=== PATIENT | female | born 1945 | race Caucasian/White ===

== ENCOUNTER 2016-05-19 14:28 | Emergency (ER) | payer MEDICARE, OTHER ==
--- NOTE | 2016-05-19 15:30 | ERNOTE ---
Abdominal HPI - Narrative Date of Service: 05/19/16 - General Chief Complaint: Abdominal Pain Source: patient Exam Limitations: no limitations - Immun/Allergies/Home Medications Immunizatons: IMMUNIZATION HX Immunizations Up to Date No History of Influenza Vaccine Yes Hx Pneumococcal Vaccination Yes Allergies/Adverse Reactions: Allergies ergotamine [Ergotamine] Adverse Reaction (Intermediate, Verified 04/12/16 15:24) hallucinations sumatriptan [From Imitrex] Adverse Reaction (Intermediate, Verified 04/30/16 15: 28) worsening Headache sumatriptan succinate [From Imitrex] Adverse Reaction (Intermediate, Verified 15:28) worsening Headache Home Medications: HOME MEDICATIONS ALPRAZolam [Xanax] 0.5 mg PO TID PRN 01/15/16 [Last Taken Unknown] Divalproex Sodium [Depakote ER] 250 mg PO BID 01/15/16 [Last Taken Unknown] Venlafaxine HCl [Effexor Xr] 150 mg PO DAILY 01/15/16 [Last Taken Unknown] Melatonin/Pyridoxine [Melatonin 3 mg Tablet] 1 each PO HS 04/30/16 [Last Taken Unknown] Mirtazapine [Mirtazapine (Remeron)] 7.5 mg PO HS 04/30/16 [Last Taken Unknown] Multivitamins [Multivitamin Celsa] 1 cap PO DAILY 04/30/16 [Last Taken Unknown] - Pain Score Pain Score #1 Pain Score: 3 Abdominal Pain Onset Location: RLQ, LLQ - History of Present Illness Narrative: 71yo, F, presents to ED via EMS for abd pain. States she has hx of perforated diverticuli with abscess to abd, which was improving per her providers at [facility]. She is currently NPO, receiving TPN through her RUE picc line for 14 hours on and 10 hours off. She reports over the past 4 days developed increased lower abd pain, fatigue, N/V (2 eipsodes today), chills and fever. Reports onset of fever on 06/17/16, tmax 100.9. States she spoke wither GI doctor. Dr. Espinoza' s office and was advised to report to [facility] ER for further evaluation. States she called the [facility] ambulance, but they would only bring her to [facility] and she would need [facility] to transfer to [facility]. She is scheduled to have bowel resection on 05/24/[address] Thorpe. Activities at Onset: none Associated Symptoms: Present: nausea, vomiting Review of Systems - Review of Systems Constitutional: Present: fever, chills, fatigue Respiratory: Absent: shortness of breath, cough Cardiology: Absent: chest pain Gastrointestinal/Abdominal: Present: nausea, vomiting, diarrhea - chronic, abdominal pain - lower abd. Absent: constipation Genitourinary: Absent: frequency, pain, dysuria, hematuria Skin: Present: other - PICC to RUE, inact, no erythema, non-tender, no dc at site. Absent: rash - Patient's Past Medical History Patient History - Medical: Anxiety, Arthritis, Chronic Pain, Depression, Headache, Osteoporosis, Other Patient History - Cardiac/Respiratory: No pertinent hx Patient History - Cancer: No Hx of Cancer Patient History - Surgical Procedures: Appendectomy, Back Surgery, Colonoscopy, Hysterectomy, Other LMP (females 10-50): Menopausal - Family History Brother Family History - Medical: Other Father Family History - Medical: Other Mother Family History - Medical: Diabetes Type 2 Family History - Cardiac/Respiratory: Myocardial Infarction - Social History Living Situations: home Alcohol Use: none Drug Use: none Physical Exam - Physical Exam General Appearance: Present: wd/wn, alert, no apparent distress Respiratory: Present: normal breath sounds, no accessory muscle use, lungs clear. Absent: crackles, rhonchi, wheezing Cardiovascular/Chest: Present: regular rate, rhythm, no murmur Gastrointestinal/Abdominal: Present: normal bowel sounds, nondistended, soft, tenderness - RLQ and suprapubic region, other ED Progress - Date and Time Seen: Date and Time: 05/19/16 [address] Espinoza's office re: situation. States she had been advised by their office to seek care at [facility] ER yesterday, but had told the office staff that she would likely seek care locally. Today she and her home health nurse spoke with Dr. Espinoza's office and they advised to seek further evaluation in ER. There office denies any previous arrangements for direct transfer or direct admit. 1545: Transferred to Charla, nurse at Dr. Thorpe's office, they were aware of her situation and that she was advised to be evaluated, state no direct transfer or direct admission had been arranged. They recommended initiating evaluation at [facility]. Pt was initially refusing blood or CT, stated she was just supposed to transfer. After discussion with [facility], pt agrees to CT and lab. 05/19/16 17:50 Spoke with pt regarding labs and POC. Son is now at bedside, he states if non- emergent transfer needed he would be able to transfer her to [facility]. Pt awaiting CT scan, did discuss risks and benefits of not performing CT scan and risks if son transfers pt without scan performed. Pt and son agreed to go forward with CT scan. 05/19/16 19:35 Pt still wishes to be evaluated at [facility]. Discussed case with Dr. Alcazar, ERP here, states as this is a non-emergent transfer, she should be taken by private vehicle to [facility]. - Results and Orders Patient's Lab Results:: I have reviewed the patient's lab results. - Vital Signs Patient's Vital Signs:: I have reviewed the patient's vital signs. Vital Signs: Vital Signs 05/19/16 14:28 Temperature 37.2 C Pulse Rate 95 Respiratory 20 Rate Blood Pressure 137/66 O2 Sat by Pulse 93 Oximetry - CT/Ultrasound CT/Ultrasound Narrative: [facility] PATIENT RADIOLOGY STUDY REPORT Patient Patient Name:GUMARO ALANIZ Date: 1945 Sex: F Order Number: [id number] Unique Exam ID: [id number] Exam Requested: ABDPELW - CT Abdomen/Pelvis W/ Contrast Date Scheduled: Study Priority: Requesting Service: Requesting Physician: Brie Falcon Reason for Exam: Radiological Report : Exam Date: 05/19/2016 18:19 Ordering Physician: Brie Falcon Indication: Lower abdominal pain, fever, chills, temperature history of ruptured diverticulitis Comparison: January 12, 2016 Technique: CT Abdomen/Pelvis W/ Contrast Findings: Lung bases are clear. The liver, spleen, pancreas and adrenals are unremarkable. Gallbladder is contracted. Reidentified gallstone within a noninflamed gallbladder. There are bilateral renal cysts. No nephrolithiasis or obstructive uropathy. No evidence for intestinal obstruction. The appendix appears surgically absent. There is extensive air-fluid levels within the colon. Within the sigmoid and rectum there is diffuse colonic wall thickening B identified. There is pericolonic inflammatory change. Within the rectum there is a fluid flexion. This appears to be intraluminal. Small amount of free fluid seen within the perirectal region. No definitive evidence for abscess seen. No free air. Remainder of the exam is unchanged from prior study. IMPRESSION: 1. Ongoing colonic wall thickening and pericolonic inflammatory change from the sigmoid colon to the rectum. No identifiable abscess. Colitis versus diverticulitis reidentified. Free fluid remains within the pelvis however this has improved. No free air. Please see above for remainder of findings. Electronically signed by Keo Villalpando M.D.. Approved by: Approval Date: 05-19-2016 Approval Time: 06:55 PM THIS REPORT WAS RECEIVED FROM THE [employer] SYSTEM - Progress/Reassessment Chief Complaint: Abdominal Pain Departure - Departure Clinical Impression: Colitis, Fever Abdominal pain Qualifiers: Abdominal location: lower abdomen, unspecified Qualified Code(s): R10.30 - Lower abdominal pain, unspecified Disposition: Home self-care Condition: Stable Instructions: Abdominal Pain, Adult, [id number], Colitis Additional Instructions: Pt riding by personal vehicle to [facility] Referrals: Zoie Diehl MD [Primary Care Provider] -
[2016-05-19 16:34] LABS: Hematocrit 37.2 % (37.0-47.0); Hemoglobin 12.3 gm/dL (12.5-16.0); Mean Cell Volume 89.4 fl (78-100); Mean Corpuscular Hemoglobin 29.6 pg (27-31); Mean Corpuscular Hgb Conc 33.1 g/dl (32-36); Mean Platelet Volume 12.6 fl (6.0-9.5); Platelet Count 167 K/mm3 (150-450); Red Blood Count 4.16 M/mm3 (4.2-5.4); Red Cell Distribution Width 14.4 % (11.5-14.0); White Blood Count 15.6 K/mm3 (4.0-10.5)
[2016-05-19 16:37] LABS: Total Cells Counted 100
[2016-05-19 16:49] LABS: Albumin * 3.2 gm/dl (3.4-5.0); Anion Gap 11.3 mmol/L (6.8-13.8); BUN/Creatinine Ratio 20.5 (9.0-21.6); Bilirubin, Total 0.4 mg/dL (0.0-1.1); Ca. Corrected For Albumin 9.5 mg/dL (8.4-10.2); Calcium * 9.2 mg/dL (7.9-10.9); Carbon Dioxide 28.6 mmol/L (24-32.6); Potassium 3.9 mmol/L (3.4-4.6); Total Protein 7.4 gm/dL (6.2-8.2)
[2016-05-19 16:51] LABS: Atypical (Reactive) Lymph 1 % (0-2); Band 2 % (0-2.0); Eosinophil 1 % (0-3); Immature Granulocyte 1 (0-1); Lymphocyte 5 % (20-51); Monocyte 5 % (0-9); Neutrophil 85 % (42-75); Neutrophil # 13.3 K/mm3 (1.3-6.0)
[2016-05-19 16:54] LABS: Hypochromia 1+; Platelet Estimate Normal (NORMAL)
[2016-05-19 17:33] LABS: Urine Bilirubin Negative (NEGATIVE); Urine Blood 25 /ul (NEGATIVE); Urine Ketone Negative (NEGATIVE); Urine Nitrite Negative (NEGATIVE); Urine Protein 15 mg/dL (NEGATIVE); Urine Specific Gravity 1.025 SP.GR. (1.005-1.010); Urine Urobilinogen Normal (NORMAL)
[2016-05-19] MEDS ORDERED: PIPERACILLIN SODIUM/TAZOBACTAM 3.375 GM in DEXTROSE 5 % IN WATER 100 ML IV ONE ×2 (17:41)
[2016-05-19] MEDS ORDERED: metroNIDAZOLE/SODIUM CHLORIDE 500 MG/100 ML BAG IV SCH (17:45)
[2016-05-19 17:48] LABS: Urine Appearance Clear; Urine Color Yellow; Urine WBC 0-5 /hpf (0-5)
[2016-05-19 17:49] LABS: Urine Bacteria TRACE; Urine Mucus Many - 3+; Urine RBC 0-5 /hpf (0-5)
[2016-05-19] MEDS ORDERED: metroNIDAZOLE 250 MG TABLET PO ONE (19:27)
[2016-05-19] MEDS ORDERED: metroNIDAZOLE 250 MG TABLET ONE (19:31)
[2016-05-19 19:42] VITALS: BP 119/59
[2016-05-19] MEDS ORDERED: HYDROcodone/ACETAMINOPHEN 1 EACH TABLET PO ONE (19:46)
[2016-05-19] MEDS ORDERED: HYDROcodone/ACETAMINOPHEN 1 EACH TABLET ONE (19:50)
== END 2016-05-19 20:09 | disposition home or self-care (01) ==
LOC: ER 14:28
DX: K52.9 Noninfective gastroenteritis and colitis, unspecified (principal); R10.30 Lower abdominal pain, unspecified; R50.9 Fever, unspecified

== ENCOUNTER 2016-06-17 14:50 | Emergency (ER) | payer MEDICARE, OTHER ==
--- NOTE | 2016-06-17 15:17 | ERNOTE ---
Medical Problem HPI - Narrative Date of Service: 06/17/16 - General Chief Complaint: General Assessment Time Seen by Provider: 06/17/16 15:16 Source: patient, family, [facility] records - Immun/Allergies/Home Medications Immunizations: IMMUNIZATION HX Immunizations Up to Date No History of Influenza Vaccine Yes Hx Pneumococcal Vaccination Yes Allergies/Adverse Reactions: Allergies ergotamine [Ergotamine] Adverse Reaction (Intermediate, Verified 04/12/16 15:24) hallucinations sumatriptan [From Imitrex] Adverse Reaction (Intermediate, Verified 04/30/16 15: 28) worsening Headache sumatriptan succinate [From Imitrex] Adverse Reaction (Intermediate, Verified 15:28) worsening Headache Home Medications: HOME MEDICATIONS Mirtazapine [Mirtazapine (Remeron)] 15 mg PO HS 04/30/16 [Last Taken Unknown] Multivitamins [Multivitamin Celsa] 1 cap PO DAILY 04/30/16 [Last Taken Unknown] Acetaminophen [Tylenol Arthritis] 650 mg PO PRN 06/17/16 [Last Taken Unknown] Divalproex Sodium [Depakote ER] 250 mg PO BID 06/17/16 [Last Taken Unknown] Ferrous Sulfate 325 mg PO DAILY 06/17/16 [Last Taken Unknown] Melatonin [Melatin] 3 mg PO DAILY 06/17/16 [Last Taken Unknown] Morphine Sulfate [Morphine Sulfate Conc. Oral Solution] 2 mg PO PRN 06/17/16 [ Last Taken Unknown] Probiotic 06/17/16 [Last Taken Unknown] Venlafaxine HCl [Effexor Xr] 150 mg PO DAILY 06/17/16 [Last Taken Unknown] traZODone HCL [Desyrel] 25 mg PO HS PRN 06/17/16 [Last Taken Unknown] - History of Present History Narrative: PT SENT FROM THE [facility] FOR CONCERNS ABOUT A POORLY HEALING COLOSTOMY SURGICAL SITE FROM May,, AND CONCERNS ABOUT A POSSIBLE DRAINING FISTULA THAT WAS FIRST A SITE TO SURGICALLY DRAIN A DIVERTICULAR ABSCESS BACK IN JAN 2016 AND WHICH HAS IN THE PAST 2-3 DAYS SHOWED INCREASED PUSTULAR DRAINAGE. SHE ALSO REPORTS THAT SHE HAS HAD CHRONIC ELEVATION OF TEMP TO ABOUT 1-00 F AND RECENTLY DIAGNOSED WITH RECURRENT UTI. SHE BELIEVES SHE IS ON A NEW ANTIBIOTIC. HER SON REPORTS THAT THEY HAVE BEEN IN CONTACT WITH DR WADSWORTH FROM [facility] AND THEY SUGGESTED SHE COME HERE TO GET ABD/PEL CT WITH CONTRAST WELL BLOOD WORK. DR WADSWORTH HAS BEEN FOLLOWING HER FROM [facility] . - Patient's Past Medical History Patient History - Medical: Anxiety, Arthritis, Chronic Pain, Depression, Headache, Osteoporosis, Other Patient History - Cardiac/Respiratory: No pertinent hx Patient History - Cancer: No Hx of Cancer Patient History - Surgical Procedures: Appendectomy, Back Surgery, Colonoscopy, Hysterectomy, Other Patient History - Other: Chronic/Prophylactic ABX - Family History Brother Family History - Medical: Other Father Family History - Medical: Other Mother Family History - Medical: Diabetes Type 2 Family History - Cardiac/Respiratory: Myocardial Infarction - Social History Living Situations: home Psych History: Hx of Anxiety, Hx of Depression Smoking Status: Never smoker Have you smoked in the past 12 months: No Alcohol Use: none Drug Use: none - Immunizations Immunizations Up to Date: No Hx Pneumococcal Vaccination: Yes History of Influenza Vaccine: Yes Physical Exam - Physical Exam General Appearance: Present: alert, mild distress - CHRONICALLY ILL LADY, ALERT AND ORIENTED AND COOP. Ears, Nose, Throat: Present: normal ENT inspection Respiratory: Present: no respiratory distress, normal breath sounds, no accessory muscle use, chest nontender, lungs clear Cardiovascular/Chest: Present: regular rate, rhythm, no murmur, normal peripheral pulses Gastrointestinal/Abdominal: Present: normal bowel sounds, no organomegaly, tenderness - MILD- MODERATE LOWER ABD TENDERNESS BELOW UMBILICUS NO REBOUND. , other - THERE IS A OLD LARGE AREA OF 6CM LONG C 3-4 CM DEEP, CLEAN INFRA- UMBILICAL WOUND DIHISENCE. ABOUT 3 CM INF. TO THAT IS A NEW 2CM LONG X 1CM WIDE SHALLOW "STITCH ABCESS" SITE WITH MINIMAL DRAINAGE. TO LEFT LATERAL BUTTOCK IS SMALL 1 CM OLD DRAINAGE SITE THAT IS DRAINING LARGE AMOUNT OF PURULENT MUCOID DRAINAGE. Back Exam: Present: normal inspection, no CVA tenderness Neurological Exam: Present: alert, oriented, normal mood/affect, no motor/ sensory deficits Skin Exam: Present: pallor Lymphatic Exam: Present: no adenopathy ED Progress - Results and Orders Patient's Lab Results:: I have reviewed the patient's lab results. Results and Orders: WBC = 13.5, HGB = 8.5, HCT = 26, PLTS = 535, K+ = 3.1, LACTIC = 1.4 URINE STILL PENDING. - Vital Signs Vital Signs: Vital Signs 06/17/16 15:09 Temperature 35.0 C L Pulse Rate 85 Respiratory 14 Rate Blood Pressure 126/52 O2 Sat by Pulse 93 Oximetry - CT/Ultrasound CT/Ultrasound Narrative: Patient Patient Name:GUMARO ALANIZ Date: 1945 Sex: F Order Number: [id number] Unique Exam ID: [id number] Exam Requested: ABDPELW - CT Abdomen/Pelvis W/ Contrast Date Scheduled: Study Priority: Requesting Service: Requesting Physician: Kenn Marcos Reason for Exam: Radiological Report : Exam Date: 06/17/2016 15:55 Ordering Physician: Kenn Marcos HISTORY: History of colitis versus diverticulitis within the sigmoid colon. Abdominal surgery on 05/24/2016. Abdominal pain. ENHANCED CT SCAN OF THE ABDOMEN AND ENHANCED CT SCAN OF THE PELVIS. COMPARISON: 05/19/2016 Technique: Initially, multiple axial images were obtained through the abdomen during the portal venous phase of enhancement. Delayed images were obtained from the kidneys down through the pelvis. Coronal reconstructions were obtained. Oral contrast was utilized. Findings: The visualized lung bases are clear. The liver is homogeneous in appearance and I do not see evidence for a focal defect or intrahepatic duct dilatation. A gallbladder is in place and there is a questionable 1.7 cm density within the neck of the gallbladder (series 2 image 21 and series 4 image 19) and additional evaluation with ultrasound is recommended The spleen is of normal size and is homogenous in appearance. The adrenal glands are within normal limits. The pancreas is with in normal limits. The abdominal aorta is of normal caliber and I do not see evidence for retroperitoneal adenopathy on this study. The right and left renal parenchyma is normal in appearance, except for a few small cysts. The left kidney demonstrates prompt excretion of contrast in the left ureter is of normal caliber. There is delayed excretion of contrast involving the right kidney with mild right sided hydronephrosis extending down the inflammatory changes in the pelvis. The stomach is partially distended and is grossly normal appearance. The small bowel is of normal caliber. The appendix is not identified and the patient gives a history of appendectomy. There is a left lower quadrant colostomy. There is bowel wall thickening involving the transverse colon and possibly descending colon suggesting an element of colitis. There is inflammation in the pelvis with a probable small fluid collection in the posterior right side of the pelvis. This measures approximately 3.4 x 2.1 x 3.6 cm and most likely reflects a small abscess. There is a mucous pouch involving the rectosigmoid colon. There is inflammation involving the cecum. CT scan of pelvis: The urinary bladder is demonstrates diffuse bladder wall thickening suggesting cystitis. The uterus is not identified. The right and left ovaries are not defined. There appears be a filling defect within the left common femoral vein, concerning for deep venous thrombosis. IMPRESSION: 1. 1.7 CM DENSITY IN THE NECK OF THE GALLBLADDER; FOLLOW-UP ULTRASOUND IS RECOMMENDED TO EXCLUDE GALLSTONE OR MASS. 2. RENAL CYSTS. 3. MILD RIGHT SIDED HYDRONEPHROSIS WITH THE RIGHT URETER EXTENDING INTO THE INFLAMMATORY CHANGES IN THE REGION OF THE PELVIS. 4. LEFT LOWER QUADRANT COLOSTOMY AND MUCOUS POUCH INVOLVING THE RECTOSIGMOID COLON. 5. DIFFUSE INFLAMMATORY CHANGES WITHIN THE PELVIS WITH INFLAMMATORY CHANGE INVOLVING THE CECUM. 6. THICKENING OF THE URINARY BLADDER WALL SUGGESTING CYSTITIS OR INFLAMMATION. 7. 3.6 OF A FLUID COLLECTION IN THE RIGHT SIDE OF THE LOWER PELVIS, WHICH MAY REFLECT A SMALL ABSCESS. 8. FILLING DEFECT WITHIN THE LEFT COMMON FEMORAL VEIN, CONCERNING FOR DEEP VENOUS THROMBOSIS; LEFT LOWER EXTREMITY VENOUS ULTRASOUND RECOMMENDED TO CONFIRM THIS FINDING. Electronically signed by Brett Kelsey M.D.. - Progress/Reassessment Chief Complaint: General Assessment Progress:: Unchanged Plan - Plan Plan: I DISCUSSED RESULTS WITH OUR SURGEON, DR WATSON, AND HE KNOWING HER FROM THE PAST AGREES THAT SHE SHOULD CONTINUE TO FOLLOW UP WITH HER SURGEON IN [facility]. I EXPLAINED FINDING TO HER SON WHO AGREES. AT 1999 I TALKED WITH [facility] AND TALKED WITH THE ER DR THERE , DR. SPANGLER, WHO ACCEPTED THE PT IN TRANSFER. HE REC. THAT WE GIVE VANCOMYCIN AND ZOSYN BUT WE WERE UNABLE TO GET THE MEDS UP IN TIME TO GIVE BEFORE EMS HERE TO TRANSFER AND EMS STATES THEY DO NOT HAVE PUMP TO INFUSE ENROUTE. Departure - Departure Clinical Impression: Colonic diverticular abscess Disposition: [facility] Condition: Fair Referrals: Zoie Diehl MD [Primary Care Provider] -
--- OUTSIDE RECORDS SUMMARY | 2016-06-17 15:40 | XMS REPORT | Continuity of Care Document ---
:1945 Author Organization [facility] ([facility]) Address [address] [place] [address] Phone [phone] Care Team Providers Name Role Phone Zoie Diehl Primary Care Provider [phone] Source Comments This disclosure is being made pursuant to the Care Everywhere program, applicable federal and state laws, and may not contain all informaitonavailable regarding this patient.[facility] ([facility]) Active Allergies and Adverse Reactions Allergen Noted Date Severity Reactions Comments Ergotamine 08/13/2010 Hallucinations Sumatriptan Succinate 02/26/2016 OTHER Pain Current Medications Prescription Sig. Disp. Refills Start End Status Date Date divalproex 250 mg Take 250 mg by Active EC tablet mouth 2 times daily. venlafaxine 150 Take 150 mg by Active mg XR capsule mouth every morning. multivitamin Take 1 tablet by Active tablet mouth daily. B INFANTIS/B Take 1 Dose by Active ANI/B MARLEY/B BIFID mouth daily. (PROBIOTIC 4X PO) mirtazapine 15 mg Take 7.5 mg by Active tablet mouth at bedtime. traZODone 50 mg Take 1 tablet (50 30 tablet 0 04/20/20 Active tablet mg total) by 16 mouth at bedtime as needed. ferrous sulfate Take 325 mg by Active 325 mg (65 mg mouth daily. iron) tablet acetaminophen 325 Take 2 tablets 90 tablet 0 05/27/19 Active mg tablet (650 mg total) by 17 mouth every 6 hours as needed. Do not exceed 3000 mg daily traMADol 50 mg Take 50 mg by Active tablet mouth 4 times daily as needed. sodium chloride 10 mL 2 times 300 mL 2 06/03/19 Active 0.9 % injection daily. Use 17 syringe syringe to lightly dampen Kerlix for midline wound dressing changes melatonin 3 mg Take 1 tablet (3 30 tablet 2 03/01/20 tablet mg total) by 16 017 mouth at bedtime. TPN infusion for TPN for 0 04/15/20 Discontinued outpatient use outpatient 16 017 infusion. TPN infusion for TPN for 0 04/20/20 Discontinued outpatient use outpatient 16 017 infusion. bisacodyl 10 mg Insert 1 30 Suppository 0 04/20/20 Discontinued suppository Suppository (10 16 017 mg total) rectally daily as needed for constipation. docusate 100 mg Take 1 capsule 30 capsule 0 04/20/20 Discontinued capsule (100 mg total) by 16 017 mouth 2 times daily for constipation. HYDROmorphone 2 Take 1-2 tablets 60 tablet 0 04/20/20 Discontinued mg tablet (2-4 mg total) by 16 017 mouth every 4 hours as needed. Earliest Fill Date: 04/20/16 magnesium Take 30 mL by 400 mL 0 04/20/20 Discontinued hydroxide (MILK mouth daily. 16 017 OF MAGNESIA CONCENTRATE) 2,400 mg/10 mL suspension sodium chloride Inject 10 mL 04/20/20 Discontinued 0.9 % injection intravenously as 16 017 syringe needed for Other (For PICC line flush per Protocol (Flush PICC weekly if not accessed) ). ACETAMINOPHEN Take 1,000 mg by Discontinued (TYLENOL EXTRA mouth as needed. 017 STRENGTH PO) polyethylene The morning of 4000 mL 0 05/13/19 Discontinued glycol-electrolyt the day BEFORE 17 017 e (NULYTELY) procedure. suspension neomycin 500 mg Day before 6 tablet 0 05/13/19 Discontinued tablet procedure, take 17 017 1,000 mg (two 500 mg tablets) at 1:00PM, 2:00PM, and 11:00PM. erythromycin base Day before 3 tablet 0 05/13/19 Discontinued 500 mg tablet procedure take 17 017 500 mg (one 500 mg tablet) at 1:00PM, 2:00PM, and 11:00PM. metroNIDAZOLE 500 Take 1 tablet 14 tablet 0 05/20/19 Discontinued mg tablet (500 mg total) by 17 017 mouth 2 times daily for 7 days. HYDROcodone-aceta Take 1 tablet by Discontinued minophen 5-325 mg mouth every 6 017 per tablet hours as needed. docusate 100 mg Take 100 mg by Discontinued capsule mouth at bedtime. 017 morpHINE 2 mg/mL Take 2.5 mL (5 mg 25 mL 0 05/27/19 Discontinued solution total) by mouth 17 017 every 4 hours as needed for pain. Do not drive or drink alcohol while taking this medication. May cause dizziness and increase risk of falls. Use with caution. HYDROmorphone 2 Take 1 tablet (2 30 tablet 0 06/03/19 Discontinued mg tablet mg total) by 17 017 mouth every 4 hours as needed. Active Problems Problem Noted Date Acute blood loss anemia 05/26/2016 Overview: Monitor, transfuse as appropriate Acute postoperative pain 05/24/2016 Overview: Monitor, treat with IV/PO pain meds prn Diverticulitis of colon 05/24/2016 Dilated cbd, acquired 04/13/2016 Moderate protein-calorie malnutrition 02/28/2016 Overview: Monitor, resume TPN as appropriate Gallstones 02/02/2016 Floaters 12/16/2015 Last Assessment & Plan: Mild high reflective vitreal opacities seen on B scan OS. Patient very symptomatic. Recommend evaluation by retina. Intermittent esotropia 10/01/2015 Last Assessment & Plan: Well controled, asymptomatic. No latent hyperopia. Fusion at near. Updated glasses prescription. Follow up locally, here PRN Nuclear senile cataract of both eyes 10/01/2015 Last Assessment & Plan: Follow up locally. Visual disturbances 08/25/2015 Last Assessment & Plan: Monocular diplopia due to KALEIGH. Improved with aggressive lubrication. May need systemic treatment if Sjogren. Bilateral dry eyes 08/21/2015 Last Assessment & Plan: Continue aggressive lubrication. Referral to rheumatology locally for evaluation for Sjogrens Anxiety and depression Overview: Monitor, resume home meds as appropriate Resolved Problems Problem Noted Date Resolved Date Fistula 05/29/2016 05/30/2016 Hypomagnesemia 05/25/2016 05/30/2016 Overview: Monitor, replete as appropriate Clostridium difficile colitis 02/26/2016 04/20/2016 Diverticulitis of large intestine with abscess without bleeding 02/02/2016 Overview: S/p sigmoid colectomy, possible fistula takedown, possible colostomy 05/24/16 Perirectal abscess 01/31/2016 05/24/2016 Altered mental status, unspecified 01/31/2016 02/04/2016 Most Recent Encounters Date Type Specialty Providers Description 06/17/2016 Orders/Notes Sr GI Charla Stewart M, AUDIO VIDEO MECHANIC 06/17/2016 Telephone Med GI/Hepatology Sania Wiseman Chief Comp: Patient RN Concern 06/10/2016 Office Visit Sr Brett Chavira Dx: Diverticulitis of MD large intestine with Charla Stewart perforation and GAYLE Clark abscess without bleeding (Primary Dx) 06/06/2016 Telephone Quvium Socrates, Chief Comp: Other SARAH MirandaSW 06/06/2016 Telephone Med GI/Hepatology Sharmaine, Chief Comp: Patient RUTH Garcia Concern 06/03/2016 Hospital Radiology Encounter 06/03/2016 [place] [facility] [place]ira, Dx: Wound infection (Primary Dx) 06/03/2016 Office Visit Gastroenterology Brett Amin, Subj: Appointment MD Scheduled 06/03/2016 Office [place] [facility] [place]avira Subj: Appointment Canceled 06/03/2016 Surgery Radiology Radiologist, Canceled IR Rad Invasive DRAINAGE CATH CHECK & CHANGE 05/31/2016 Telephone [facility] Charla Mcnulty Chief Comp: Symptom M, AUDIO VIDEO MECHANIC Management 05/31/2016 Nurse Triage [facility] Inpatient Samantha, Chief Comp: 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 General Care Inpatient Brett Amin, Dx: Diverticulitis of - Encounter - Adult colon (Primary Dx) 05/30/2016 05/24/2016 Surgery General Surgery Brett Amin, Proctectomy with sigmoid end colostomy 05/20/2016 Telephone Med GI/Hepatology Sharmaine, Chief Comp: Patient RUTH Garcia Concern 05/20/2016 Pharmacy Visit 05/19/2016 [facility] Emergency Medicine Willingham, Dx: Diverticulitis of - Encounter Jimenez Mora MD colon (Primary Dx) 05/20/2016 05/19/2016 Telephone Srg Charla Mcnulty ARNP 05/19/2016 Telephone Med GI/Hepatology Sharmaine, Chief Comp: Patient RUTH Garcia Concern 05/18/2016 Telephone Med GI/Hepatology Marely Manriquez, Chief Comp: Abdominal RN Pain 05/13/2016 Office Visit Pathology Olga, Dx: Diverticulitis of Joelle Clark MD colon Lab Services, Irl 05/13/2016 Office Visit Med GI/Hepatology Olga, Dx: Diverticulitis of Joelle Clark MD large intestine with abscess without bleeding (Primary Dx) 05/13/2016 Office Visit Gastroenterology Brett Amin, Dx: Diverticulitis of colon (Primary Dx) 05/13/2016 Telephone Med GI/Hepatology Kaylie Chief Comp: Medical Zoie Update 05/13/2016 Anesthesia Event General Surgery Zuly Anton RN 05/11/2016 Orders/Notes Med GI/Hepatology Joelle Espinoza MD 05/09/2016 Telephone Med GI/Hepatology Olga, Chief Comp: Lab Joelle Clark MD Results 05/08/2016 Orders/Notes Med GI/HepatJoelle Gutierrez MD 2016 Orders/Notes Med GI/HepatJoelle Gutierrez MD 05/03/2016 Orders/Notes Med GI/HepatJoelle Gutierrez MD 05/03/2016 Telephone Med GI/Hepatology Brian Lion Chief Comp: Other 05/03/2016 Telephone Med GI/Hepatology Olga, Chief Comp: Discuss Joelle Clark MD Recommendations 05/03/2016 Telephone Gastroenterology Brett Amin, Chief Comp: MD Cisneros/FMLA 05/03/2016 Telephone Med GI/HepatBrian Chamberlain Chief Comp: Other 04/29/2016 Orders/Notes Med GI/HepatJoelle Gutierrez MD 04/28/2016 Telephone Med GI/Hepatology Charleen Andino RN 04/27/2016 Telephone Med GI/Hepatology Sharmaine, Chief Comp: RUTH Garciasupervisor [place] [employer] Question 04/27/2016 Telephone Med GI/Hepatology Brett Amin, Chief Comp: Insurance/FMLA 04/21/2016 Orders/Notes Med GI/Hepatology Joelle Espinoza MD 04/21/2016 Nurse Triage [facility] Inpatient Coopermarisol Marisela Quintana, Chief Comp: 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 General Care Inpatient Cosme Allan, Dx: Diverticulitis of - Encounter - Adult MD large intestine with 04/20/2016 [place], abscess without Nikia Sen MD bleeding (Primary Dx) Alon Kathleen, DO Bhargav Hernández MD Nawaz, MD Conchita Rock, MD Demario Brady, MD Richard 04/12/2016 Hospital Patient Services - Encounter 04/13/2016 04/12/2016 Telephone Radiology Niya Kovacs Chief Comp: Aram RN Scheduling 04/11/2016 Telephone Radiology Carmelita Arguello Chief Comp: Patient L, RN Concern 04/06/2016 Telephone Gastroenterology Brett Amin Chief Comp: Other 04/06/2016 Telephone Radiology Marleni, Chief Comp: Other RUTH Lawrence 04/05/2016 Telephone Srg Omayra Moore 04/05/2016 Telephone Radiology Carmelita Arguello Chief Comp: Patient L, RN Concern 04/04/2016 Telephone Radiology Marleni Chief Comp: Other RUTH Lawrence 04/01/2016 Office Visit Pathology Brett Amin, Dx: Clostridium difficile colitis Lab Services, Irl 04/01/2016 Office Visit Gastroenterology Brett Amin Dx: Clostridium MD difficile colitis (Primary Dx) 04/01/2016 Surgery Radiology Adrienne Carr, IR DRAINAGE CATH CHECK & CHANGE 03/22/2016 Nurse Triage Med GI/Hepatology Marisela Mendez Chief Comp: Post-op Renee RN Follow-up Call 03/21/2016 Office Visit Srg GI Red-Fabiola Subj: Appointment Sarah mackey MD Canceled 03/18/2016 [facility] GI/Hepatology Davy Dx: Rectal pain Encounter Sarah mackey MD 03/17/2016 Telephone Srg CHRISTINA Bhatti Chief Comp: Patient pSarah MD Concern 03/17/2016 Telephone Radiology Niya Kovacs Chief Comp: Patient L, RN Concern Immunizations Name Dates Previously Given Next Due Influenza 02/14/2014,02/07/2013,02/08/2012 Influenza, high dose 01/15/2016,01/22/2015 Pneumococcal Polysaccharide, PPSV23 02/08/2012 (Pneumovax 23) Social History Tobacco Use Types Packs/Day Years Used Date Never Smoker Smokeless Tobacco: Never Used Tobacco Cessation:Counseling Given: Yes Comments: Alcohol Use Drinks/Week oz/Week Comments No Last Filed Vital Signs Vital Sign Reading Time Taken Blood Pressure 123/63 06/10/2016 9:23 AM KEY WORKER Pulse 96 06/10/2016 9:23 AM KEY WORKER Temperature 36.8 C (98.2 F) 06/10/2016 9:23 AM KEY WORKER Respiratory Rate 18 06/10/2016 1:55 PM KEY WORKER Height 1.651 m (5' 5") 06/10/2016 9:23 AM KEY WORKER Weight 59.2 kg (130 lb 8.2 oz) 06/10/2016 9:23 AM KEY WORKER Body Mass Index 21.72 06/10/2016 9:23 AM KEY WORKER Oxygen Saturation 100% 05/30/2016 8:00 AM KEY WORKER Plan of Care Date Type Specialty Providers Description 06/24/2016 Appointment Srg Brett Chavira MD [address] [place] [address] [phone] (Fax) Subj: Appointment Scheduled Charla Stewart ARNP [address] [place] [address] [phone] (Fax) Health Maintenance Due Date Last Done Comments HCV Screening 1945 Hepatitis B Vaccine (1 of 3 1945 - Primary Series) Tdap Vaccine 1955 Lipid Disorder Screening 1962 Td Vaccine 1962 Mammogram 1984 Zoster Vaccine 2004 Osteoporosis Screening (DXA 2009 Bone Density) Pneumococcal Vaccine (2 of 2 02/07/2013 02/08/2012 - PCV13) Colonoscopy 03/31/2026 03/31/2016 Influenza Vaccine: Seasonal Completed 01/15/2016, Additional history exists 01/22/2015, 02/14/2014 Procedures from Last 3 Months Procedure Name Priority Date/Time Associated Diagnosis Comments ABSTRACTED BY Routine 05/31/2016 8:25 Diverticulitis of Results for this BILLING STAFF AM KEY WORKER colon procedure are in the results section. Proctectomy with 05/24/2016 3:04 Diverticulitis of sigmoid end PM KEY WORKER colon colostomy Case Notes First available OR time please Results from Last 3 Months URINALYSIS (06/10/2016 2:11 PM) Component Value Range Color, Urine Yellow Straw, Pale Yellow, Yellow, Clear, None Clarity, Urine Clear Clear pH, Urine 5.0 <9.0 Glucose, Urine Negative Negative Blood, Urine Negative Negative Ketones, Urine Negative Negative Protein, Urine 1+(A) Negative Urobilinogen, Urine Normal Normal Bilirubin, Urine Negative Negative Leukocyte Esterase, Urine 1+(A) Negative Nitrite, Urine Negative Negative Spec [place], Urine 1.015 1.000-1.030 Specimen Urine ALBUMIN (06/10/2016 10:43 AM) Component Value Range Albumin 2.9(L) 3.4-4.8 g/dL Specimen Blood PREALBUMIN (06/10/2016 10:43 AM)Only the most recent of4 resultswithin the time period is included. Component Value Range Prealbumin 5(L) 18-45 mg/dL Specimen Blood BASIC METABOLIC PANEL W/ CALCIUM (CHEM 8) (06/10/2016 10:43 AM)Only the most recent of10 resultswithin the time period is included. Component Value Range Sodium 139 135-145 mEq/L Potassium 3.9 3.5-5.0 mEq/L Chloride 97 95-107 mEq/L CO2 29 22-29 mEq/L Anion Gap 13 8-18 mEq/L BUN 13 10-20 mg/dL Creatinine 0.9Comment: 0.5-1.0 mg/dL Creatinine switched to enzymatic method on 09/07/2010.GFR equation switched to IDMS-traceable MDRD equation on 09/07/2010. Calculated GFR values are not valid in clinical settings where serum creatinine is changing. Glucose 114(H)Comment: 65-99 mg/dL The Expert Committee on the Diagnosis and Classification of Diabetes has defined impaired fasting glucose as greater than or equal to 100 mg/dL but less than 126 mg/dL.(Diabetes Care 28 (Suppl 1)S41,2005) Calcium 10.0 8.5-10.5 mg/dL Calculated GFR 62 >60 mL/min/1.73 m2 Specimen Blood CBC (COMPLETE BLOOD COUNT) (06/10/2016 10:43 AM)Only the most recent of8 resultswithin the time period is included. Component Value Range WBC Count 13.4(H) 3.7-10.5 K/MM3 RBC Count 3.03(L) 4.00-5.20 M/MM3 Hemoglobin 8.9(L) 11.9-15.5 g/dL Hematocrit 27(L) 35-47 % MCV (Mean Corpuscular Volume) 88 82-99 FL MCH (Mean Corpuscular Hemoglobin) 29 25-35 PG MCHC (Mean Corpuscular Hemoglobin Concentration) 33 32-36 % Platelet Count 657(H) 150-400 K/MM3 MPV (Mean Platelet Volume) 10.7 9.4-12.3 FL RBC Dist Width-STD 46.5(H) 36.4-46.3 FL RBC Distrib Width 14.5 9.0-14.5 % Nucleated RBC 0 /100 WBC Specimen Whole Blood SRG OR CASE (05/31/2016 8:25 AM) Narrative Brett Amin MD 05/31/20168:25 AM OR CASE: Proctectomy with end colostomy Post-Op Procedure Note - Colorectal Surgery Date: 05/24/16 Service: Surgery-Adult/Plastics Location: MAIN OR Preoperative Diagnosis: * Diverticulitis of colon [K57.32] Operation/Procedure: Proctectomy with sigmoid end colostomy (N/A) Postoperative Diagnosis: * Diverticulitis of colon [K57.32] Surgeon(s): * Brett Amin MD - Primary * Eliud Pinto MD - Resident - Assisting * Warner Patrick MD - Resident - Assisting Findings: Evidence of chronic diverticular infection with extensive adhesions to pelvic sidewall, thickening of sigmoid colon and rectum. No healthy rectum remaining for anastomosis, and so proctectomy with end colostomy was performed. Left ureter identified and avoided. Some pockets of murky fluid encountered in the pelvis during dissection. Estimated Blood Loss: 250 ml Specimens: ID Type Source Tests Collected by Time Destination 1 : sigmoid colon and rectum Surgical Pathology Surgical Pathology Specimen SURGICAL PATHOLOGY EXAM Brett Amin MD 05/24/2016 1615 Anesthesia:General Urine Output:75 ml Fluid Replacement: albumin 5% RTU injection: 250 ml lactated ringers (LR) continuous infusion: 500 ml sodium chloride 0.9% continuous infusion: 1000 ml Implants: Implant Name Type Inv. Item Serial No. Log Rider Lot No. LRB No. Used Action STAPLER CUTTER CONTOUR CURVED 4.5MM GREEN - [id number] CUTTER CONTOUR CURVED 4.5MM [employer]_ENDO_SURGERY_INC [id number] N/A 1 Implanted STAPLER DAVID DST 100 3.8 MILLIMETER SNGLE USE RELOADABLE - [id number] STAPLER DAVID DST 100 3.8 MILLIMETER SNGLE USE RELOADABLE AUTOSUTURE [id number] N/A 1 Implanted Operative Report Completion: Ms. 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 She was brought to the operating room for sigmoidectomy and treatment of her diverticular disease. DESCRIPTION OF PROCEDURE: Ms. Alaniz was brought into the operating room and correctly identified.She was positioned supine on the table and general anesthesia was induced.She was then repositioned on the split-leg table with legs apart and all pressure points appropriately padded.She was prepped and draped in the standard sterile fashion and a time-out was completed.Her existing low midline incision was used and was reopened in the skin with a knife and dissection was carried deeper using electrocautery. This was then extended to slightly above the umbilicus. Dissection was carried to the level of the fascia which was incised and the peritoneum was carefully opened using scissors. Electrocautery was used to extend the incision along the length of the wound and an Omid wound protector was then placed.The patient had noted that although she had completed a bowel prep, she had minimal output, and her bowels appeared to be distended with liquid consistent with a liquid bowel prep.The cecum was in the middle of the field and was mobilized slightly so that it could be retracted superiorly.There were some adhesions of the small bowel in the pelvis and attachment of the mesentery of the small bowel to the rectum, and these were carefully taken down using a combination of blunt dissection and electrocautery.This allowed the small bowel to be retracted superiorly, exposing the sigmoid colon and rectum.The sigmoid colon and rectum were noted to be extremely thickened with dense adhesions to the pelvic sidewall and surrounding structures consistent with her chronic diverticular disease.The adhesions to the sidewall were carefully taken down using a combination of electrocautery and blunt dissection.Some pockets of murky fluid were encountered and suctioned.The left ureter was identified and carefully preserved throughout the operation.In the pelvis, the presacral space was entered and dissection was carried posteriorly before being extended anteriorly.An EEA sizer was placed in the vagina to identify the vaginal cuff and dissection was carried posterior to this to free the rectum circumferentially.At a level very low in the pelvis, the rectum was still thickened and inflamed and there was no healthy rectum to perform an anastomosis upon. Therefore, the decision was made to perform a proctectomy sigmoidectomy with end colostomy.The Contour green load stapler was placed surrounding the rectum well in the pelvis and used to divide the rectum.The mesentery was then sequentially clamped and tied with 3-0 Vicryl ties and the mesentery was divided with electrocautery.At a point of soft colon proximal to the diverticular disease, a window was created in the mesentery and the DAVID blue load stapler was used to divide the colon.The specimen was then passed off the field.A transverse incision was made in the right lower quadrant and a NAZIA drain was placed in the pelvis.Prior to firing the Contour stapler, the sizer in the vaginal cuff was palpated to ensure that the vaginal cuff was not included in the staple line.Next, some additional mobilization of descending colon from the lateral abdominal sidewall proceeded using electrocautery and this freed sufficient length of the colon to reach without tension for a colostomy.A colostomy site was selected on the left side just superior to the umbilicus and a circular incision was created in the skin with electrocautery.This was carried to the level of the fascia and the anterior fascia was incised before starting the muscle and incising the posterior fascia.This was sized to be approximately 2 fingerbreadths in width.The colon was then passed outside of the abdomen and secured in place with an Allis clamp.The abdomen was then inspected, ensuring correct orientation of the colon and correct placement of the small bowel.The drain was secured in place with 3-0 nylon suture and the fascia was closed with running #1 looped PDS suture.Ewa were then used to close the low midline incision.The staple line of the colon was then resected using electrocautery and the colostomy was matured in standard Lianna fashion using interrupted 3-0 Vicryl sutures.A stoma appliance and sterile dressings were applied.The patient tolerated the procedure well and there were no apparent complications.Dr. Amin was present throughout the entire procedure. Post-Op Plan: - Admit to [facility] for DVT prophylaxis - Wound/ostomy consult - PT consult - Nutrition consult - Colorectal protocol - Ambulation, IS, OOB Eliud Pinto MD Resident - Department of Surgery [facility] PHOSPHORUS (05/27/2016 5:12 AM)Only the most recent of12 resultswithin the time period is included. Component Value Range Phosphorus 4.1Comment:New reference range installed 02/10/15. 2.5-4.5 mg/dL Specimen Blood MAGNESIUM (05/27/2016 5:12 AM)Only the most recent of12 resultswithin the time period is included. Component Value Range Magnesium 2.0 1.5-2.9 mg/dL Specimen Blood CHEM 6 PANEL (05/27/2016 5:12 AM)Only the most recent of3 resultswithin the time period is included. Component Value Range Sodium 142 135-145 mEq/L Chloride 102 95-107 mEq/L Potassium 4.0 3.5-5.0 mEq/L CO2 31(H) 22-29 mEq/L BUN 7(L) 10-20 mg/dL Creatinine 0.6Comment: 0.5-1.0 mg/dL Creatinine switched to enzymatic method on 09/07/2010.GFR equation switched to IDMS-traceable MDRD equation on 09/07/2010. Calculated GFR values are not valid in clinical settings where serum creatinine is changing. Anion Gap 9 8-18 mEq/L Calculated GFR >90 >60 mL/min/1.73 m2 Specimen Blood BLOOD GLUCOSE, BEDSIDE (05/25/2016 6:07 AM)Only the most recent of18 resultswithin the time period is included. Component Value Range Glucose, Accu-Chek 143(H) 65-99 mg/dL Specimen Blood, capillary SURGICAL PATHOLOGY EXAM (05/24/2016 4:15 PM) Component Value Range Case Report Surgical Pathology Case: [id number] Authorizing Provider:Brett Amin MD Collected: 05/24/2016 04:15 PM Ordering Location: Main OR Received:05/24/2016 04:28 PM Pathologist: Taz Brady MD Specimen:Colon, specify, sigmoid colon and rectum Diagnosis Sigmoid colon (15.9 cm), sigmoid colectomy: Diverticular disease. Mural fibrosis. One (1) reactive lymph node. I have personally reviewed this case and edited the report as necessary. Gross Description Received in formalin in a container labeled with Melida Alaniz, hospital number, and "sigmoid colon and rectum" is a 15.9 cm in length x 4.2-5.4 cm in diameter sigmoid and rectum resection.The ser osal surface is pink-[place] and unremarkable. The proximal staple margin is removed and inked blue and the distal stapled margin is inked green.The mucosal surface is pink-[place] with the usual longitud inal folds.There are four diverticula (0.5 cm in greatest dimension) that are 7.1 cm from proximal margin and 10.3 cm from distal margin. Remainder of mucosa is unremarkable.A cursory lymph node search reveals no prominent lymph nodes.Blocks submitted: A1:Proximal and distal mucosal margins (blue=proximal; green=yellow) A2-A3:Sections of diverticula A4:Normal colon SJV/rls Microscopic Description Microscopic examination performed and supports the diagnosis. NEP/AB Specimen Surgical Pathology - Colon, specify TYPE AND SCREEN (BLOOD TYPE(ABORH) AND RBC ANTIBODY SCREEN) (05/24/2016 1:08 PM ) Component Value Range ABORH O Positive Specimen Expiration Date 2016-05-27 Antibody Screen Negative Specimen Blood SODIUM ([facility]) (05/24/2016 1:08 PM) Component Value Range Sodium, Whole Blood 140 135-145 mEq/L Specimen Blood POTASSIUM ([facility]) (05/24/2016 1:08 PM) Component Value Range Potassium, Whole Blood 3.6Comment: 3.5-5.0 mEq/L Sample run on whole blood.Hemolysis is not measured. Specimen Blood COMPREHENSIVE METABOLIC PANEL (CMP) (05/13/2016 9:34 AM) Component Value Range Sodium 140 135-145 mEq/L Potassium 5.0 3.5-5.0 mEq/L Chloride 102 95-107 mEq/L CO2 27 22-29 mEq/L Anion Gap 11 8-18 mEq/L BUN 21(H) 10-20 mg/dL Creatinine 0.5Comment: 0.5-1.0 mg/dL Creatinine switched to enzymatic method on 09/07/2010.GFR equation switched to IDMS-traceable MDRD equation on 09/07/2010. Calculated GFR values are not valid in clinical settings where serum creatinine is changing. Glucose 106(H)Comment: 65-99 mg/dL The Expert Committee on the Diagnosis and Classification of Diabetes has defined impaired fasting glucose as greater than or equal to 100 mg/dL but less than 126 mg/dL.(Diabetes Care 28 (Suppl 1)S41,2005) Calcium 9.5 8.5-10.5 mg/dL Total Protein 7.3 6.0-8.0 g/dL Albumin 3.9 3.4-4.8 g/dL AST 27Comment: 0-32 U/L Adult reference ranges updated on 03/26/13 at 830am ALP 81 35-104 U/L Bilirubin Total 0.2 <=1.2 mg/dL ALT 16Comment: 0-33 U/L The upper limit of normal for alanine aminotransferase (ALT) reference ranges for adults is controversial with some authorities recommending limit as low as 30 U/L for males and 19 U/L for females. Th ere is increased incidence of subclinical liver disease (e.g., early steatohepatitis) in patients with ALT values in the range of 31-41 U/L for males and 20-33 U/L for females. ALT values should alway s be interpreted in conjunction with clinical history, physical examination findings, and, if applicable, data from other diagnostic tests. Calculated GFR >90 >60 mL/min/1.73 m2 Specimen Blood EXTERNAL MPV (05/09/2016 12:45 PM)Only the most recent of4 resultswithin the time period is included. Component Value Range Ext MPV 13.4(A) 8.0-12.5 FL EXTERNAL CBC WITH DIFFERENTIAL (05/09/2016 12:45 PM)Only the most recent of4 resultswithin the time period is included. Component Value Range Ext WBC Count 4.69 4.00-11.00 K/UL Ext RBC Count 3.87 3.80-5.80 M/UL Ext Hemoglobin 11.2(A) 11.5-16.5 G/DL Ext Hematocrit 35.1(A) 37.0-47.0 % Ext MCV (Mean Corpuscular Volume) 90.7 76.0-99.0 FL Ext MCH-Mean Corpuscular Hemoglobin 28.9 27.0-32.0 PG Ext MCHC-Mean Corpuscular Hgb Concentration 31.9 30.0-35.0 G/DL Ext Platelet Count 209 135-470 K/UL Ext RDW-Red Cell Distribution Width 14.9 11.0-17.0 % Ext Neutrophils 2.82 2.00-7.90 K/UL Ext Lymphocytes 1.18 1.00-4.00 K/UL Ext Monocytes 0.50 0.00-0.80 K/UL Ext Eosinophils 0.15 0.00-0.40 K/UL Ext Basophils 0.03 0.00-0.10 K/UL Ext % Neutrophils 60.1 45.0-75.0 % Ext % Lymphs 25.2 20.0-45.0 % Ext % Monocytes 10.7(A) 0.0-10.0 % Ext % Eosinophils 3.2 0.0-5.0 % Ext % Basophils 0.6 0.0-2.0 % EXTERNAL MAGNESIUM (05/09/2016 12:45 PM)Only the most recent of4 resultswithin the time period is included. Component Value Range Ext Magnesium 2.0 1.8-2.4 MG/DL EXTERNAL CALCULATED GFR (05/09/2016 12:45 PM)Only the most recent of4 resultswithin the time period is included. Component Value Range Ext Calculated GFR >60Comment:For GFR Non- and . EXTERNAL COMPREHENSIVE METABOLIC PANEL (05/09/2016 12:45 PM)Only the most recent of3 resultswithin the time period is included. Component Value Range Ext BUN 25(A) 7-18 MG/DL Ext AST 27 15-37 U/L Ext ALT 21 12-78 U/L Ext Sodium 141 136-145 MMOL/L Ext Total Protein 6.7 6.4-8.2 G/DL Ext Potassium 4.6 3.5-5.0 MMOL/L Ext ALP 80 46-116 U/L Ext Glucose 95 74-106 MG/DL Ext Creatinine 0.61 0.55-1.02 MG/DL Ext CO2 28 21-32 MMOL/L Ext Calcium 9.3 8.5-10.1 MG/DL Ext Bilirubin, Total 0.30 0.2-1.0 MG/DL Ext Albumin 3.1(A) 3.4-5.0 G/DL Ext Chloride 104 98-107 MMOL/L EXTERNAL PHOSPHORUS (PO4) (05/09/2016 12:45 PM)Only the most recent of4 resultswithin the time period is included. Component Value Range Ext Phosphorus 3.9 2.6-4.7 MG/DL EXTERNAL PREALBUMIN (05/05/2016 1:00 PM)Only the most recent of2 resultswithin the time period is included. Component Value Range Ext Prealbumin 25 14-37 MG/DL EXTERNAL TRIGLYCERIDES (04/28/2016 11:05 AM)Only the most recent of2 resultswithin the time period is included. Component Value Range Ext Triglycerides 95 30-150 MG/DL EXTERNAL BASIC METABOLIC PANEL (W/CALCIUM TOTAL) (04/21/2016 11:30 AM) Component Value Range Ext Calcium 8.9 8.5-10.1 MG/DL Ext CO2 28 21-32 MMOL/L Ext Chloride 104 98-107 MMOL/L Ext Creatinine 0.77 0.55-1.02 MG/DL Ext Glucose 134(A) 74-106 MG/DL Ext Potassium 4.8 3.5-5.0 MMOL/L Ext Sodium 141 136-145 MMOL/L Ext BUN 25(A) 7-18 MG/DL DIFFERENTIAL (04/20/2016 4:37 AM)Only the most recent of8 resultswithin the time period is included. Component Value Range % Neutrophils-Auto Diff 60.8 % Neutrophils-Auto Diff 3860 7833-6915 /MM3 % Lymphocytes-Auto Diff 14.6 % Lymphocytes-Auto Diff 725 327-2841 /MM3 % Monocytes-Auto Diff 17.2 % Monocytes-Auto Diff 1090(H) 130-860 /MM3 % Eosinophils-Auto Diff 6.0 % Eosinophils-Auto Diff 380 40-390 /MM3 % Basophils 0.9 % Basophils-Auto Diff 60 10-136 /MM3 % Immature Granulocytes-Auto Diff 0.5 % Immature Granulocytes-Auto Diff 30 /MM3 Specimen Whole Blood CBC (COMPLETE BLOOD COUNT) (04/20/2016 4:37 AM)Only the most recent of8 resultswithin the time period is included. Component Value Range WBC Count 6.4 3.7-10.5 K/MM3 RBC Count 3.16(L) 4.00-5.20 M/MM3 Hemoglobin 9.2(L) 11.9-15.5 g/dL Hematocrit 28(L) 35-47 % MCV (Mean Corpuscular Volume) 90 82-99 FL MCH (Mean Corpuscular Hemoglobin) 29 25-35 PG MCHC (Mean Corpuscular Hemoglobin Concentration) 33 32-36 % Platelet Count 357 150-400 K/MM3 MPV (Mean Platelet Volume) 10.3 9.4-12.3 FL RBC Dist Width-STD 45.7 36.4-46.3 FL RBC Distrib Width 13.9 9.0-14.5 % Nucleated RBC 0 /100 WBC Specimen Whole Blood CBC WITH DIFFERENTIAL (04/20/2016 4:37 AM)Only the most recent of8 resultswithin the time period is included. Specimen Whole Blood Narrative The following orders were created for panel order CBC WITH DIFFERENTIAL. Procedure Abnormality Status --------- ------ CBC (COMPLETE BLOOD COUNT)[[id number]] AbnormalFinal result DIFFERENTIAL[[id number]] AbnormalFinal result Please view results for these tests on the individual orders. CT ABDOMEN& PELVIS W CONTRAST ([id number]) (04/19/2016 3:04 PM) Impressions Impression: 1. Interval removal of posterior pelvic drain.The previously drained posterior perirectal fluid collection remains almost completely gone. Interval decreased perirectal fluid collection anteriorly (which was likely in communication with the drained posterior collection). 2. Minimally increased size and localization of the left pelvic fluid, but without significant thickening of its wall.Unclear whether the localization is due to peritonitis or possible infection. 3. Inflammatory thickening of the rectosigmoid with narrowing of the proximal sigmoid colon, but without complete obstruction. Contrast reaches the distal rectum. 4.New mild prominence of left renal pelvis and dilatation of the left ureter, probably due to mass effect or inflammatory involvement of the left distal ureter. Mild thickening of the urinary bladder wall, likely due to adjacent inflammation. 5. Cholelithiasis without evidence of cholecystitis. 6. Mild extrahepatic bile duct dilation, unchanged. Mild prominent pancreatic duct is stable since prior. Narrative Procedure: CT ABDOMEN & PELVIS W CONTRAST ([id number]) Clinical Indication: Pelvic fluid collections likely secondary to sigmoid diverticulitis Technique: CT exam of the abdomen and pelvis is performed following the uneventful administration of 97 cc Isovue-370 IV contrast. Comparison: Outside CT dated 04/12/2016. In-house CT dated 02/26/2016. Findings: Lower chest: Lung bases are clear. Liver: Normal Bile ducts: Common hepatic duct is dilated at 10 mm. This is stable since a study dated 02/26/2016. No distal common bile duct mass is seen. Gallbladder: Gallstone. No pericholecystic fat stranding. Pancreas: Minimal pancreatic duct dilation 3, stable since CT dated 02/26/2016 Spleen: Normal Adrenal glands: Normal Kidneys: Stable posterior right renal cyst measuring 2.5 cm. Stable small left renal cyst. There is mild interval dilatation of left renal pelvis .No significant calyceal dilatation on left side. Ureters: Normal right ureter. Mild interval dilatation of left ureter likely due to mass effect from the pelvic fluid collections. Bladder: Mild wall thickening, likely secondary to adjacent inflammation. Aorta: Normal Retroperitoneum: No lymphadenopathy. Peritoneum: There is a loculated fluid collection in the left pelvis adjacent to the inflamed sigmoid colon, grossly stable since prior study dated 04/12/2016.The small perirectal fluid collection anteriorly appears to have decreased in size compared to study dated 04/12/2016. Interval removal of posterior drain. The posterior perirectal collection remains almost completely drained. Mesentery: Normal Stomach: Small hiatal hernia. Small bowel: Not distended. Colon: Diffuse wall thickening involving the rectosigmoid, however contrast is seen in the distal rectum. Appendix: Not identified. Extraperitoneal pelvis: No lymphadenopathy. Uterus: Surgically absent Ovaries: Stable low-density cystic structure in the right adnexa could represent right ovarian cyst versus loculated fluid collection. Left ovary is not identified. Abdominal wall: Normal Bones: Schmorl's node superior endplate of L3. Procedure Note Joseph, Incoming Imaging Results - Tue Apr 19, 2016 5:00 PM KEY WORKER Procedure: CT ABDOMEN & PELVIS W CONTRAST ([id number]) Clinical Indication: Pelvic fluid collections likely secondary to sigmoid diverticulitis Technique: CT exam of the abdomen and pelvis is performed following the uneventful administration of 97 cc Isovue-370 IV contrast. Comparison: Outside CT dated 04/12/2016. In-house CT dated 02/26/2016. Findings: Lower chest: Lung bases are clear. Liver: Normal Bile ducts: Common hepatic duct is dilated at 10 mm. This is stable since a study dated 02/26/2016. No distal common bile duct mass is seen. Gallbladder: Gallstone. No pericholecystic fat stranding. Pancreas: Minimal pancreatic duct dilation 3, stable since CT dated 02/26/2016 Spleen: Normal Adrenal glands: Normal Kidneys: Stable posterior right renal cyst measuring 2.5 cm. Stable small left renal cyst. There is mild interval dilatation of left renal pelvis .No significant calyceal dilatation on left side. Ureters: Normal right ureter. Mild interval dilatation of left ureter likely due to mass effect from the pelvic fluid collections. Bladder: Mild wall thickening, likely secondary to adjacent inflammation. Aorta: Normal Retroperitoneum: No lymphadenopathy. Peritoneum: There is a loculated fluid collection in the left pelvis adjacent to the inflamed sigmoid colon, grossly stable since prior study dated 04/12/2016. The small perirectal fluid collection anteriorly appears to have decreased in size compared to study dated 04/12/2016. Interval removal of posterior drain. The posterior perirectal collection remains almost completely drained. Mesentery: Normal Stomach: Small hiatal hernia. Small bowel: Not distended. Colon: Diffuse wall thickening involving the rectosigmoid, however contrast is seen in the distal rectum. Appendix: Not identified. Extraperitoneal pelvis: No lymphadenopathy. Uterus: Surgically absent Ovaries: Stable low-density cystic structure in the right adnexa could represent right ovarian cyst versus loculated fluid collection. Left ovary is not identified. Abdominal wall: Normal Bones: Schmorl's node superior endplate of L3. IMPRESSION Impression: 1. Interval removal of posterior pelvic drain. The previously drained posterior perirectal fluid collection remains almost completely gone. Interval decreased perirectal fluid collection anteriorly (which was likely in communication with the drained posterior collection). 2. Minimally increased size and localization of the left pelvic fluid, but without significant thickening of its wall. Unclear whether the localization is due to peritonitis or possible infection. 3. Inflammatory thickening of the rectosigmoid with narrowing of the proximal sigmoid colon, but without complete obstruction. Contrast reaches the distal rectum. 4. New mild prominence of left renal pelvis and dilatation of the left ureter, probably due to mass effect or inflammatory involvement of the left distal ureter. Mild thickening of the urinary bladder wall, likely due to adjacent inflammation. 5. Cholelithiasis without evidence of cholecystitis. 6. Mild extrahepatic bile duct dilation, unchanged. Mild prominent pancreatic duct is stable since prior. TRIGLYCERIDES (04/19/2016 5:25 AM)Only the most recent of2 resultswithin the time period is included. Component Value Range Triglycerides 65Comment: 0-150 mg/dL Reference Ranges: Normal:<150 mg/dL Borderline-high:150-199 mg/dL High: 200-499 mg/dL Very high: > mi=974 mg/dL Specimen Blood HEPATIC FUNCTION PANEL (04/19/2016 5:25 AM) Component Value Range Albumin 2.5(L) 3.4-4.8 g/dL ALP 68 35-104 U/L Bilirubin Total 0.1 <=1.2 mg/dL Bilirubin, Direct <0.2 0.0-0.2 mg/dL AST 12Comment: 0-32 U/L Adult reference ranges updated on 03/26/13 at 830am ALT <5Comment: 0-33 U/L The upper limit of normal for alanine aminotransferase (ALT) reference ranges for adults is controversial with some authorities recommending limit as low as 30 U/L for males and 19 U/L for females. Th ere is increased incidence of subclinical liver disease (e.g., early steatohepatitis) in patients with ALT values in the range of 31-41 U/L for males and 20-33 U/L for females. ALT values should alway s be interpreted in conjunction with clinical history, physical examination findings, and, if applicable, data from other diagnostic tests. Total Protein 6.0 6.0-8.0 g/dL Specimen Blood URINE CULTURE, REFLEXED (04/18/2016 6:32 PM)Only the most recent of2 resultswithin the time period is included. Component Value Range Quantitative Culture No growth at 05/999 dilution Specimen Culture - Urine, Midstream clean catch MICROSCOPIC URINALYSIS (04/18/2016 6:09 PM)Only the most recent of2 resultswithin the time period is included. Component Value Range White Blood Cells, Urine 9(H) 0-5 /HPF Red Blood Cells, Urine 4(H) 0-2 /HPF Mucous-Urine Rare None, Rare Specimen Urine URINALYSIS WITH REFLEX CULTURE (04/18/2016 6:09 PM)Only the most recent of2 resultswithin the time period is included. Component Value Range Color, Urine Yellow Straw, Pale Yellow, Yellow, Clear, None Clarity, Urine Clear Clear pH, Urine 7.0 <9.0 Spec [place], Urine 1.015 1.000-1.030 Glucose, Urine Negative Negative Blood, Urine Negative Negative Ketones, Urine Negative Negative Protein, Urine Negative Negative Urobilinogen, Urine Normal Normal Bilirubin, Urine Negative Negative Leukocyte Esterase, Urine 1+(A) Negative Nitrite, Urine Negative Negative Specimen Urine URINALYSIS WITH REFLEXED CULTURE AND MICROSCOPIC EXAM (04/18/2016 6:09 PM)Only the most recent of2 resultswithin the time period is included. Specimen Culture - Urine, Midstream clean catch Narrative The following orders were created for panel order URINALYSIS WITH REFLEXED CULTURE AND MICROSCOPIC EXAM. Procedure Abnormality Status --------- ------ URINALYSIS WITH REFLEX C...[[id number]]AbnormalFinal result MICROSCOPIC URINALYSIS[[id number]] Abnormal Final result URINE CULTURE, REFLEXED[[id number]]Normal Final result Please view results for these tests on the individual orders. BLOOD CELL MORPHOLOGY (04/17/2016 5:11 AM) Specimen Whole Blood FECAL OCCULT BLOOD - GUAIAC (04/16/2016 10:17 AM) Component Value Range Fecal Occult Blood Screen Negative Negative Card Type HemaPrompt Specimen Stool US RIGHT UPPER QUADRANT (RUQ) (04/15/2016 11:53 AM) Impressions Impression: 1. Extrahepatic biliary dilation of unknown etiology, similar to comparison CT from 04/12/16. No obstructive lesion identified. 2. Cholelithiasis without acute cholecystitis. 3. Borderline dilation of the pancreatic duct without abrupt cutoff. --- Final --- Narrative [facility] Department of Radiology Ultrasound Division [address] [place] [address] ULTRASOUND REPORT NAME:MELIDA Chiu CORBIN Date of Service: 04/15/2016 MRN NO.: [id number] Review Date: 04/15/2016 Patient's : 1945 Resident/Tech: [id number] Thong Manzo Patient's Age: 70 years Referring MD:BJORN DORADO Indication: Extrahepatic biliary duct dilatation and pancreatic duct dilatation, in the absence of any definable pancreatic lesion. Technique: Right upper quadrant grayscale ultrasound. Comparison: CT 04/12/16. Findings: Liver: +---------+ + + + + :Size (cm):Echogenicity:Echotexture:Shape: Vascularity: +---------+ + + + + :15.8 :Normal. :Normal.:Normal and nodular.:Normal. : +---------+ + + + + Gallbladder: + + + :Gallbladder contents :None : + + + :Gallbladder wall :Normal. 3.3 mm.: + + + :Pericholecystic fluid:Absent.: + + + :Del Real's sign:Negative : + + + Biliary Tree: + + + + :Intrahepatic biliary ducts:Right liver:Left liver: + + + + ::Normal :Normal : + + + + + + + + -+ :Extrahepatic duct :Diameter (mm):Biliary dilation:Contents/Characteristics: :(common duct) : :: : + + + + -+ :Proximal:6.4:Dilated :None/normal : + + + + -+ :Mid :14.9 :Dilated :None/normal : + + + + -+ :Distal:9.8:Dilated :None/normal : + + + + -+ Spleen: Spleen measures 10 x 9.9 x 4.4 cm. Pancreas: + +------+------+ : :Head:Body: + +------+------+ :Pancreas Thickness (cm):2.4 cm:1.1 cm: + +------+------+ :Pancreatic duct (mm) :3.0 mm:: + +------+------+ Ascites: No ascites. Procedure Note Joseph, Incoming Imaging Results - MonApr 15, 2016 4:50 PM [facility] Department of Radiology Ultrasound Division [place] [address] ULTRASOUND REPORT NAME: MELIDA ALANIZ Date of Service: 04/15/2016 MRN NO.: [id number] Review Date: 04/15/2016 Patient's : 1945 Resident/Tech: [id number] Thong Manzo Patient's Age: 70 years Referring MD: BJORN DORADO Indication: Extrahepatic biliary duct dilatation and pancreatic duct dilatation, in the absence of any definable pancreatic lesion. Technique: Right upper quadrant grayscale ultrasound. Comparison: CT 04/12/16. Findings: Liver: +---------+ + + + + :Size (cm):Echogenicity:Echotexture:Shape :Vascularity: +---------+ + + + + :15.8 :Normal. :Normal. :Normal and nodular.:Normal. : +---------+ + + + + Gallbladder: + + + :Gallbladder contents :None : + + + :Gallbladder wall :Normal. 3.3 mm.: + + + :Pericholecystic fluid:Absent. : + + + :Gt'marisol sign :Negative : + + + Biliary Tree: + + + + :Intrahepatic biliary ducts:Right liver:Left liver: + + + + : :Normal :Normal : + + + + + + + + -+ :Extrahepatic duct :Diameter (mm):Biliary dilation:Contents/Characteristics: :(common duct) : : : : + + + + -+ :Proximal :6.4 :Dilated :None/normal : + + + + -+ :Mid :14.9 :Dilated :None/normal : + + + + -+ :Distal :9.8 :Dilated :None/normal : + + + + -+ Spleen: Spleen measures 10 x 9.9 x 4.4 cm. Pancreas: + +------+------+ : :Head :Body : + +------+------+ :Pancreas Thickness (cm):2.4 cm:1.1 cm: + +------+------+ :Pancreatic duct (mm) :3.0 mm: : + +------+------+ Ascites: No ascites. IMPRESSION Impression: 1. Extrahepatic biliary dilation of unknown etiology, similar tocomparison CT from 04/12/16. No obstructive lesion identified. 2. Cholelithiasis without acute cholecystitis. 3. Borderline dilation of the pancreatic duct without abrupt cutoff. --- Final --- PICC LINE REQUEST (04/14/2016 11:54 AM) Sin Orourke RN 04/14/2016 11:54 AM Procedure PICC Line Insertion, 04/14/2016 Consent for Procedure The procedure was explained to the patient including risks and benefits.Patient signed consent form and wishes to proceed. A time out was performed at bedside. Location: Patient room Description of Procedure The truckload owner operator performed proper hand hygiene and utilized maximum sterile barrier precautions. The patient's skin was prepped with CHG and draped with a large body drape in the usual sterile fashion.Using ultrasound guidance, the right brachial vein was identified and assessed for patency.3 cc's of 1% lidocaine was injected into the skin.Using the Seldinger technique and ultrasound guidance, the vein was entered with a 21 gauge micropuncture needle and the wire threaded into the vein.A 37 cm 5 Fr double lumen Bard Power PICC SOLO catheter (Lot number [id number]) was inserted into the tear-away sheath.Blood was aspirated from both lumens and the catheter was easily flushed with saline, secured into place, and dressed with a sterile CHG tegaderm. The distal tip was confirmed in the distal superior vena cava/ cavoatrial junction.PICC line placement was confirmed by chest x-ray.PICC line is ready for use. Procedure was successful at bedside. Complications There were no immediate complications. Staff Sin Gray RN-BSN Nurse Clinical Specialist PICC Service CHEST - AP/PA (04/14/2016 10:49 AM) Narrative Procedure: CHEST - AP/PA Technique: Portable AP chest radiograph Comparison: No prior. Clinical Indication: PICC line placement Findings / Impression: Right upper extremity PICC line tip is at the cavoatrial junction. Otherwise the portable exam is grossly within normal limits. Procedure Note Joseph, Incoming Imaging Results - Mariya Apr 14, 2016 11:44 AM KEY WORKER Procedure: CHEST - AP/PA Technique: Portable AP chest radiograph Comparison: No prior. Clinical Indication: PICC line placement Findings / Impression: Right upper extremity PICC line tip is at the cavoatrial junction. Otherwise the portable exam is grossly within normal limits. IR DRAIN/CATH REMOVAL (04/13/2016 4:50 PM)C. DIFFICILE TOXIN SCREEN (2015 12:43 PM) Component Value Range C. Difficle GDH Negative Negative C. Difficile Toxin NegativeComment: Negative Negative for the presence of C. difficile and C. difficile toxin. Specimen Stool LACTIC ACID, WHOLE BLOOD ([facility]) (04/13/2016 7:17 AM)Only the most recent of2 resultswithin the time period is included. Component Value Range Lactic Acid, Whole Blood 1.0Comment: 0.5-2.0 mEq/L Glycolate, the principle toxic metabolite of ethylene glycol, can cause artifactual elevation of measured lactate. Specimen Blood LIPASE (04/12/2016 11:17 PM) Component Value Range Lipase 16 13-60 U/L Specimen Blood AMYLASE (04/12/2016 11:17 PM) Component Value Range Amylase 49Comment: 0-100 U/L Amylase assay methodology and reference range changed 08/20/09. Specimen Blood LIVER PANEL (04/12/2016 11:17 PM) Component Value Range Bilirubin Total 0.2 <=1.2 mg/dL AST 18Comment: 0-32 U/L Adult reference ranges updated on 03/26/13 at 830am ALT 9Comment: 0-33 U/L The upper limit of normal for alanine aminotransferase (ALT) reference ranges for adults is controversial with some authorities recommending limit as low as 30 U/L for males and 19 U/L for females. Th ere is increased incidence of subclinical liver disease (e.g., early steatohepatitis) in patients with ALT values in the range of 31-41 U/L for males and 20-33 U/L for females. ALT values should alway s be interpreted in conjunction with clinical history, physical examination findings, and, if applicable, data from other diagnostic tests. ALP 100 35-104 U/L GGT 39(H) 5-36 U/L Albumin 2.7(L) 3.4-4.8 g/dL Total Protein 6.7 6.0-8.0 g/dL Specimen Blood PTT (PARTIAL THROMBOPLASTIN TIME) (04/12/2016 11:17 PM) Component Value Range PTT 23 22-31 secs Specimen Blood PT/INR (PROTHROMBIN TIME/INR) VENOUS (04/12/2016 11:17 PM) Component Value Range PT (Prothrombin Time) 11 9-12 secs INR 1.0 <4.0 Specimen Blood IR DRAINAGE CATH CHECK& CHANGE (04/01/2016 11:15 AM) Impressions IMPRESSION: 1. Sinogram of existing left perirectal catheter showed resolution of fluid pocket with only potential space around the tip of the catheter. Fistulous communication with the colon with redemonstrated.. 2. Successful exchange of existing left perirectal catheter using a 12 [place], 35 cm locking pigtail catheter. PLAN: 1. Patient to be discharged. 2. Catheter to bag drainage. Monitor outputs. Flush with 10 mL normal saline once daily. 3. Patient to return to IR in 2 months for drainage catheter check/change, possible sinogram.. Narrative PROCEDURE: Sinogram with catheter exchange. INDICATIONS:70 year old femalewith history of diverticulitis with subsequent abscess in theperirectal region status post drain placement on 02/02/2016. Patient's last catheter exchange and was 03/14/2016. Patient presents for follow-up two-week sinogram. ACCESS: Previously placed left perirectal drain. CONTRAST: 5 ml Isovue-370 ANESTHESIA:1% Local lidocaine MEDICATION: 3 mg Versed IV, 100 mcg Fentanyl IV. PHYSICIANS:STAFF RADIOLOGIST: Dr. Adrienne Carr GENERAL SERVICE OFFICER: Dr. Susan Villareal PULSES:Intact bilaterally COMPLICATIONS:None immediate FLUORO TIME:1 min FLUORO DOSE:4 mGy TECHNIQUE/FINDINGS:The patient was identified. Informed consent was obtained after a detailed discussion outlining the risks, benefits, and alternatives to the procedure and after all of the patient's questions were answered. The patient was brought to the interventional suite and placed in the supine position. A formal timeout was performed. The patient was prepped and draped in usual sterile fashion. A case preparer and liner film was performed to document the location of the existing catheter. Contrast was injected through the existing left perirectal catheter and a sinogram was performed. This showed resolution of the fluid collection with only potential space around the tip of the catheter. Fistulous connection to the colon with redemonstrated.. Decision was made to exchange the existing catheter. Subsequently, the pericatheteral skin was anesthetized using 1 % lidocaine. The existing catheter was unlocked and unsecured from the skin and removed over a Bentson guidewire. A new 12 F, 35 locking pigtail catheter was inserted over the wire and placed within the residual fluid collection. Bentson guidewire was removed. Contrast was injected and a post procedural sinogram was performed documenting adequate location of the catheter and to rule out any immediate complications. Catheter was locked and sutured to the skin using 2-0 Prolene. Procedure was done with fluoroscopic guidance. The patient tolerated the procedure well. There were no complications. Dr. Adrienne Carr and Dr. Susan Villareal performed the entire procedure. Procedure Note Joseph, Incoming Imaging Results - MonApr 04, 2016 4:46 PM KEY WORKER PROCEDURE: Sinogram with catheter exchange. INDICATIONS: 70 year old female with history of diverticulitis with subsequent abscess in the perirectal region status post drain placement on 02/02/2016. Patient's last catheter exchange and was 03/14/2016. Patient presents for follow-up two-week sinogram. ACCESS: Previously placed left perirectal drain. CONTRAST: 5 ml Isovue-370 ANESTHESIA: 1% Local lidocaine MEDICATION: 3 mg Versed IV, 100 mcg Fentanyl IV. PHYSICIANS: STAFF RADIOLOGIST: Dr. Adrienne Carr GENERAL SERVICE OFFICER: Dr. Susan Villareal PULSES: Intact bilaterally COMPLICATIONS: None immediate FLUORO TIME: 1 min FLUORO DOSE: 4 mGy TECHNIQUE/FINDINGS: The patient was identified. Informed consent was obtained after a detailed discussion outlining the risks, benefits, and alternatives to the procedure and after all of the patient's questions were answered. The patient was brought to the interventional suite and placed in the supine position. A formal timeout was performed. The patient was prepped and draped in usual sterile fashion. A case preparer and liner film was performed to document the location of the existing catheter. Contrast was injected through the existing left perirectal catheter and a sinogram was performed. This showed resolution of the fluid collection with only potential space around the tip of the catheter. Fistulous connection to the colon with redemonstrated.. Decision was made to exchange the existing catheter. Subsequently, the pericatheteral skin was anesthetized using 1 % lidocaine. The existing catheter was unlocked and unsecured from the skin and removed over a Bentson guidewire. A new 12 F, 35 locking pigtail catheter was inserted over the wire and placed within the residual fluid collection. Bentson guidewire was removed. Contrast was injected and a post procedural sinogram was performed documenting adequate location of the catheter and to rule out any immediate complications. Catheter was locked and sutured to the skin using 2-0 Prolene. Procedure was done with fluoroscopic guidance. The patient tolerated the procedure well. There were no complications. Dr. Adrienne Carr and Dr. Susan Villareal performed the entire procedure. IMPRESSION IMPRESSION: 1. Sinogram of existing left perirectal catheter showed resolution of fluid pocket with only potential space around the tip of the catheter. Fistulous communication with the colon with redemonstrated.. 2. Successful exchange of existing left perirectal catheter using a 12 [place], 35 cm locking pigtail catheter. PLAN: 1. Patient to be discharged. 2. Catheter to bag drainage. Monitor outputs. Flush with 10 mL normal saline once daily. 3. Patient to return to IR in 2 months for drainage catheter check/change, possible sinogram.. ENDOSCOPY COLONOSCOPY (03/31/2016 9:24 AM) Sarah Zhao MD 03/31/20169:24 AM ENDOSCOPY COLONOSCOPY DATE OF PROCEDURE:03/18/2016 OPERATION/PROCEDURE Flexible sigmoidoscopy INDICATIONFlexible sigmoidoscopy ATTENDING Abigail Cole MD RESIDENT/FELLOWnone REFERRING PHYSICIANSarah Cole MD CONSENT FOR OPERATION OR PROCEDURE Informed consent was obtained from the patient. Potential complications including bleeding, infection, reaction to sedation medication, accidental perforation, or missing lesions were discussed with the patient. HISTORY OF PRESENT ILLNESS The patient is a 70 y.o. female who recently had a bout of complicated diverticulitis requiring drain placement into the pelvic abscess.This was complicated by a severe C diff colitis several weeks later.She is currently doing well.She is presenting for colonoscopy to rule out colonic mass. PHYSICAL EXAM Alert and oriented times 3.Oropharynx normal.Mallampati class 2.Lungs are clear to auscultation bilaterally.Heart regular. Abdomen is soft, nontender, nondistended, with normal bowel sounds. ASA CATEGORY 3. PREOPERATIVE ANESTHESIA ASSESSMENT The sedation plan was discussed with the patient, and the patient was deemed a satisfactory candidate for IV sedation. PROCEDURAL MEDICATIONS Fentanyl 100 mcg IV and Versed 6 mg IV PHOTOGRAPHSYes. BIOPSYNo FINDINGS After appropriate sedation and normal digital rectal exam, a pediatric Olympus colonoscope was inserted through the anus and advanced to the top of the rectum, where a tight stricture was encountered.Scope was switched to upper endoscope in an effort to traverse it.Upper endoscope was unable to traverse it due to tight angulation.A small spaghetti scope was used and was able to traverse this into the proximal colon.Sigmoid colon was normal except diverticulosis.The ileocecal valve was not intubated. The scope was withdrawn slowly for mucosal inspection. No polyps were seen Retroflexion in the rectum was not performed. The rectum was decompressed and the scope was removed, terminating the procedure. Prep was satisfactory Withdrawal time n/a minutes. COMPLICATIONS No immediate complications. IMPRESSION 1.No polyps 2.Sigmoid diverticuli. 3.No internal hemorrhoids. 4. Tight rectosigmoid stricture. PLAN Follow up in surgery clinic for operative discussion in 8 weeks with me or sooner if able with Dr. Amin.Low fiber diet. Miralax. Sarah Cole MD FINAL REVIEWER Sarah Cole MD
[2016-06-17 15:44] LABS: Hematocrit 26.8 % (37.0-47.0); Hemoglobin 8.5 gm/dL (12.5-16.0); Mean Cell Volume 88.4 fl (78-100); Mean Corpuscular Hemoglobin 28.1 pg (27-31); Mean Corpuscular Hgb Conc 31.7 g/dl (32-36); Mean Platelet Volume 10.2 fl (6.0-9.5); Platelet Count 535 K/mm3 (150-450); Red Blood Count 3.03 M/mm3 (4.2-5.4); Red Cell Distribution Width 14.6 % (11.5-14.0); White Blood Count 13.5 K/mm3 (4.0-10.5)
[2016-06-17 15:46] LABS: Total Cells Counted 100
[2016-06-17 16:03] LABS: Albumin * 1.9 gm/dl (3.4-5.0); Anion Gap 8.9 mmol/L (6.8-13.8); Bilirubin, Total 0.2 mg/dL (0.0-1.1); Ca. Corrected For Albumin 11.1 mg/dL (8.4-10.2); Calcium * 9.7 mg/dL (7.9-10.9); Carbon Dioxide 32.2 mmol/L (24-32.6); Potassium 3.1 mmol/L (3.4-4.6); Total Protein 6.9 gm/dL (6.2-8.2)
[2016-06-17] MEDS ORDERED: DIATRIZOATE MEGLU/DIATRIZO SOD 30 ML BTL ONE (16:03)
[2016-06-17 16:11] LABS: Band 1 % (0-2.0); Eosinophil 2 % (0-3); Lymphocyte 11 % (20-51); Monocyte 7 % (0-9); Neutrophil 79 % (42-75); Neutrophil # 10.7 K/mm3 (1.3-6.0)
[2016-06-17 16:12] LABS: Hypochromia 2+; Platelet Estimate Increased (NORMAL)
[2016-06-17] MEDS ORDERED: DIATRIZOATE MEGLU/DIATRIZO SOD 30 ML BTL PO ONE (16:19)
[2016-06-17] MEDS ORDERED: ONDANSETRON HCL/PF 2 MG/ML VIAL IV ONE (16:33)
[2016-06-17] MEDS ORDERED: ONDANSETRON HCL/PF 2 MG/ML VIAL ONE (16:33)
[2016-06-17 20:09] LABS: Urine Bilirubin Negative (NEGATIVE); Urine Ketone Negative (NEGATIVE); Urine Nitrite Negative (NEGATIVE); Urine Protein Negative (NEGATIVE); Urine Specific Gravity <=1.005 SP.GR. (1.005-1.010); Urine Urobilinogen Normal (NORMAL); Urine pH 6.5 pH (5.0-7.0)
[2016-06-17] MEDS ORDERED: PIPERACILLIN SODIUM/TAZOBACTAM 3.375 GM in DEXTROSE 5 % IN WATER 100 ML IV ONE ×2 (20:12)
[2016-06-17] MEDS ORDERED: VANCOMYCIN HCL 1 GM in DEXTROSE 5 % IN WATER 250 ML IV ONE ×2 (20:13)
[2016-06-17 20:23] LABS: Urine Appearance Clear; Urine Bacteria None Seen; Urine Blood 10 /ul (NEGATIVE); Urine Color Yellow; Urine RBC None Seen /hpf (0-5); Urine WBC None Seen /hpf (0-5)
[2016-06-17 20:27] VITALS: BP 117/55
[2016-06-17] MEDS ORDERED: MORPHINE SULFATE 4 MG/ML SYRG IV ONE (20:52)
[2016-06-17] MEDS ORDERED: MORPHINE SULFATE 4 MG/ML SYRG ONE (20:53)
== END 2016-06-17 21:00 | disposition short-term general hospital (02) ==
LOC: ER 14:50
DX: K57.20 Diverticulitis of large intestine with perforation and abscess without bleeding (principal); R50.9 Fever, unspecified